=== PATIENT | female | born 1935 | race Caucasian/White ===

== ENCOUNTER 2016-07-27 13:22 | Inpatient (IN) | payer MEDICARE, OTHER ==
--- NOTE | 2016-07-27 13:31 | ER Document Report ---
ED Medical Screen (RME) - General Stated Complaint: WEAK/MEMORY LOSS Mode of Arrival: Wheelchair Information source: Patient, Relative - significant other Notes: Patient presents to the emergency department with her significant other for complaints of weakness, weight loss and not eating for the past month. Reports last weight was 93 lbs, today 86 lbs. He also reports she's not drinking fluids. Denies chest pain or shortness of breath. Has history of COPD reports coughing not new. TRAVEL OUTSIDE OF THE [place] IN LAST 30 DAYS: No - Related Data Allergies/Adverse Reactions: No Known Allergies Allergy (Verified 06/27/16 12:50) Past Medical History - Past Medical History Cardiac Medical History: Reports: Hx Hypertension Denies: Hx Coronary Artery Disease, Hx Heart Attack Pulmonary Medical History: Reports: Hx Asthma, Hx Bronchitis, Hx COPD - On home O2., Hx Pneumonia Renal/ Medical History: Reports: Hx Renal Insufficiency GI Medical History: Reports: Hx Ulcer. Denies: Hx Hepatitis Musculoskeltal Medical History: Reports Hx Arthritis Psychiatric Medical History: Reports: Hx Anxiety Infectious Medical History: Denies: Hx Hepatitis Past Surgical History: Reports: Other - Cataract - Immunizations Hx Diphtheria, Pertussis, Tetanus Vaccination: No
[2016-07-27] MEDS ORDERED: NORMAL SALINE 1000 ML 1,000 ML IV ONE (14:17)
[2016-07-27 16:40] LABS: ABSOLUTE EOSINOPHILS # (AUTO) 0.1 10^3/uL (0.0-0.6); ABSOLUTE LYMPHOCYTES (AUTO) 0.8 10^3/uL (0.5-4.7); ABSOLUTE MONOCYTES (AUTO) 0.8 10^3/uL (0.1-1.4); ABSOLUTE NEUT (AUTO) 2.4 10^3/uL (1.7-8.2); BASOPHILS % (AUTO) 0.5 % (0-2); EOSINOPHILS % (AUTO) 3.3 % (0-6); HEMATOCRIT 31.7 % (36.0-47.0); HEMOGLOBIN 10.2 g/dL (12.0-15.5); HGB HCT DIFFERENCE -1.1; LYMPHOCYTES % (AUTO) 19.8 % (13-45); MEAN CORPUSCULAR HEMOGLOBIN 25.3 pg (27.0-33.4); MEAN CORPUSCULAR HGB CONC 32.1 g/dL (32.0-36.0); MONOCYTES % (AUTO) 19.8 % (3-13); RED BLOOD COUNT 4.02 10^6/uL (3.72-5.28); RED CELL DISTRIBUTION WIDTH 19.6 % (11.5-14.0); SEGMENTED NEUTROPHILS % (AUTO) 56.6 % (42-78); WHITE BLOOD COUNT 4.2 10^3/uL (4.0-10.5)
[2016-07-27 16:43] LABS: MEAN CORPUSCULAR VOLUME 79 fl (80-97)
[2016-07-27 16:49] LABS: ALANINE AMINOTRANSFERASE 17 U/L (9-52); ALBUMIN 2.9 g/dL (3.5-5.0); ALKALINE PHOSPHATASE 77 U/L (38-126); ANION GAP 13 (5-19); ASPARTATE AMINO TRANSFERASE 22 U/L (14-36); BILIRUBIN,TOTAL 0.7 mg/dL (0.2-1.3); BLOOD UREA NITROGEN 38 mg/dL (7-20); CARBON DIOXIDE 25 mmol/L (22-30); CHLORIDE 103 mmol/L (98-107); CREATININE RESULT 2.55 mg/dL (0.52-1.25); GLUCOSE 64 mg/dL (75-110); POTASSIUM 3.7 mmol/L (3.6-5.0); SODIUM 140.6 mmol/L (137-145); TOTAL PROTEIN 5.7 g/dL (6.3-8.2)
[2016-07-27 16:56] LABS: APPEARANCE,URINE CLEAR; BILIRUBIN,URINE NEGATIVE (NEGATIVE); GLUCOSE, URINE NEGATIVE (NEGATIVE); KETONES,URINE TRACE mg/dL (NEGATIVE); LEUKOCYTE ESTERASE,URINE TRACE (NEGATIVE); NITRITE,URINE NEGATIVE (NEGATIVE); PROTEIN,URINE 100 mg/dL (NEGATIVE); URINE SPECIFIC GRAVITY 1.009; UROBILINOGEN,URINE NEGATIVE mg/dL (<2.0)
[2016-07-27 17:06] LABS: CALCIUM 12.7 mg/dL (8.4-10.2)
--- NOTE | 2016-07-27 17:10 | ER Document Report ---
ED General - General Chief Complaint: General Weakness Stated Complaint: WEAK/MEMORY LOSS Mode of Arrival: Wheelchair Information source: Patient Notes: 80-year-old female presents with complaints of generalized weakness dehydration. Patient is noted to have lost 5-6 pounds in the past week. Patient was seen here multiple times in the past month for dehydration was hydrated and sent home.She does not have much of an appetite denies any fevers or chills nausea vomiting or diarrhea TRAVEL OUTSIDE OF THE [place] IN LAST 30 DAYS: No - HPI Onset: Other - 1 month Onset/Duration: Worse Quality of pain: No pain Severity: Moderate Pain Level: Denies Associated symptoms: Weakness Exacerbated by: Denies Relieved by: Denies Similar symptoms previously: Yes Recently seen / treated by doctor: Yes - Related Data Allergies/Adverse Reactions: No Known Allergies Allergy (Verified 07/27/16 13:28) Home Medications: Current Home Medications Alprazolam [Xanax 0.5 mg Tablet] 0.5 mg PO HSP PRN 07/27/16 [History] Cetirizine HCl [Zyrtec 10 mg Tablet] 10 mg PO DAILYP PRN 07/27/16 [History] Cholecalciferol (Vitamin D3) [Vitamin D3 1000 Unit Tablet] 2,000 units PO DAILY 07/27/16 [History] Esomeprazole Magnesium [Nexium 24Hr] 1 cap PO DAILY 07/27/16 [History] Fenofibrate [Lofibra] 160 mg PO QHS 07/27/16 [History] Gabapentin [Neurontin 100 mg Capsule] 100 mg PO Q12 07/27/16 [History] Ipratropium/Albuterol Sulfate [Combivent Respimat 4 gm Mdi] 1 puff IH QID [History] Magnesium 250 mg PO DAILY 07/27/16 [History] Megestrol Acetate [Megace] 400 mg PO BID 07/27/16 [History] Metoprolol Tartrate [Lopressor 50 mg Tablet] 25 mg PO DAILY 07/27/16 [History] Oxycodone HCl/Acetaminophen [Oxycodone-Acetaminophen 5-325] 1 tab PO Q12HP PRN 07/27/16 [History] Past Medical History - General Information source: Patient, Relative - significant other - Social History Smoking Status: Never Smoker Cigarette use (# per day): No Chew tobacco use (# tins/day): No Smoking Education Provided: No Frequency of alcohol use: None Drug Abuse: None Family History: Reviewed & Not Pertinent, Malignancy - Lung cancer-father, leukemia-mother Patient has suicidal ideation: No Patient has homicidal ideation: No - Past Medical History Cardiac Medical History: Reports: Hx Hypertension Denies: Hx Coronary Artery Disease, Hx Heart Attack Pulmonary Medical History: Reports: Hx Asthma, Hx Bronchitis, Hx COPD - On home O2., Hx Pneumonia Renal/ Medical History: Reports: Hx Renal Insufficiency. Denies: Hx Peritoneal Dialysis GI Medical History: Reports: Hx Ulcer. Denies: Hx Hepatitis Musculoskeltal Medical History: Reports Hx Arthritis Psychiatric Medical History: Reports: Hx Anxiety Infectious Medical History: Denies: Hx Hepatitis Past Surgical History: Reports: Other - Cataract - Immunizations Hx Diphtheria, Pertussis, Tetanus Vaccination: No Hx Pneumococcal Vaccination: 11/13/10 Review of Systems - Review of Systems Notes: REVIEW OF SYSTEMS: CONSTITUTIONAL : Denies fever, chills, or sweats. Denies recent illness. EENT: Denies eye, ear, throat, or mouth pain or symptoms. Denies nasal or sinus congestion or discharge. Denies throat, tongue, or mouth swelling or difficulty swallowing. CARDIOVASCULAR: Denies chest pain. Denies palpitations or racing or irregular heart beat. Denies ankle edema. RESPIRATORY: Denies cough, cold, or chest congestion. Denies shortness of breath, difficulty breathing, or wheezing. GASTROINTESTINAL: Denies abdominal pain or distention. Denies nausea, vomiting , or diarrhea. Denies blood in vomitus, stools, or per rectum. Denies black, tarry stools. Denies constipation. GENITOURINARY: Denies difficulty urinating, painful urination, burning, frequency, blood in urine, or discharge. FEMALE GENITOURINARY: Denies vaginal bleeding, heavy or abnormal periods, irregular periods. Denies vaginal discharge or odor. MUSCULOSKELETAL: Denies back or neck pain or stiffness. Denies joint pain or swelling. SKIN: Denies rash, lesions or sores. HEMATOLOGIC : Denies easy bruising or bleeding. LYMPHATIC: Denies swollen, enlarged glands. NEUROLOGICAL: admits to weakness PSYCHIATRIC: Denies anxiety or stress. Denies depression, suicidal ideation, or homicidal ideation. ALL OTHER SYSTEMS REVIEWED AND NEGATIVE. Dictation was performed using Dragon voice recognition software PHYSICAL EXAMINATION: GENERAL: Well-appearing, well-nourished and in no acute distress. HEAD: Atraumatic, normocephalic. EYES: Pupils equal round and reactive to light, extraocular movements intact, conjunctiva are normal. ENT: Nares patent, oropharynx clear without exudates. Moist mucous membranes. NECK: Normal range of motion, supple without lymphadenopathy LUNGS: Breath sounds clear to auscultation bilaterally and equal. No wheezes rales or rhonchi. HEART: Regular rate and rhythm without murmurs ABDOMEN: Soft, nontender, nondistended abdomen. No guarding, no rebound. No masses appreciated. Female : deferred Musculoskeletal: Normal range of motion, no pitting or edema. No cyanosis. NEUROLOGICAL: Cranial nerves grossly intact. Normal speech, normal gait. Normal sensory, motor exams PSYCH: Normal mood, normal affect. SKIN: Warm, Dry, normal turgor, no rashes or lesions noted. Physical Exam - Vital signs Vitals: Temp Pulse Resp BP Pulse Ox 97.9 F 71 12 130/58 H 97 07/27/16 13:28 07/27/16 13:28 07/27/16 13:28 07/27/16 13:28 07/27/16 13:28 Course - Re-evaluation Re-evalutation: 07/27/16 19:21 pts creatinine is elevated, she is noted to be hypocalcemic which she has been in the past. Patient's been ordered fluids, lab work otherwise notes no significant abnormality I will admit her for the weakness and worsening renal function - Vital Signs Vital signs: Temp Pulse Resp BP Pulse Ox 97.9 F 71 23 H 176/87 H 97 07/27/16 13:28 07/27/16 13:28 07/27/16 19:01 07/27/16 19:01 07/27/16 19:01 - Laboratory Result Diagrams: 07/27/16 16:10 07/27/16 16:10 Laboratory results interpreted by me: 07/27/16 07/27/16 07/27/16 16:10 16:10 16:18 Hgb 10.2 L Hct 31.7 L MCV 79 L D MCH 25.3 L RDW 19.6 H Monocytes % 19.8 H BUN 38 H Creatinine 2.55 H Est GFR ( Amer) 22 L Est GFR (Non-Af Amer) 18 L Glucose 64 L Calcium 12.7 H* Total Protein 5.7 L Albumin 2.9 L Urine Protein 100 H Urine Ketones TRACE H Ur Leukocyte Esterase TRACE H Critical Care Note - Critical Care Note Total time excluding time spent on procedures (mins): 35 Comments: 35 minutes of critical care time spent in direct contact evaluating and reevaluating the patient, treating symptoms, reviewing labs and studies and speaking with family and consultants excluding any procedures Discharge - Discharge Clinical Impression: RADHA (acute kidney injury), Dehydration, Hypercalcemia Condition: Stable Disposition: ADMITTED INPATIENT Admitting Provider: Hospitalist Unit Admitted: Telemetry
[2016-07-27] MEDS ORDERED: ACETAMINOPHEN 325 MG TABLET PO PRN (19:02)
[2016-07-27] MEDS ORDERED: ONDANSETRON HCL INJ/PF 4 MG/2 ML SDV IV PRN (19:02)
[2016-07-27] MEDS ORDERED: ALPRAZOLAM 0.5 MG TABLET PO PRN (19:08)
[2016-07-27] MEDS ORDERED: HYDRALAZINE HCL INJ/PF 20 MG/1 ML SDV IV PRN (19:19)
--- NOTE | 2016-07-27 19:38 | PDOC H&P ---
History of Present Illness Admission Date/PCP: 07/27/16 19:03 JOANA VALDEZ Patient complains of: Generalized weakness History of Present Illness: JERICHO EAST is a 80 year old female, with chronic kidney disease stage IV anorexia COPD hypertension breath to the hospital by the family due to increasing weakness worse for the past few days. The patient was admitted for similar problems in May of last year. Patient found to have renal failure and dehydration with hypercalcemia and given Megace but according to the family is not helping. The patient denies any specific complaints at all. Patient just feels weak and tired without any appetite. No nausea or vomiting. No chills or fever. No diarrhea. No abdominal pain. No chest pain or shortness of breath. Patient is becoming lethargic according to family. She was brought to the hospital for evaluation. Creatinine is worse and serum calcium is elevated and therefore was referred for admission Past Medical History Past Medical History: Medications reconciliation pending verification from the patient's pharmacist Cardiac Medical History: Reports: Hypertension Denies: Coronary Artery Disease, Myocardial Infarction Pulmonary Medical History: Reports: Asthma, Bronchitis, Chronic Obstructive Pulmonary Disease (COPD) - On home O2., Pneumonia GI Medical History: Denies: Hepatitis Musculoskeltal Medical History: Reports: Arthritis Hematology: Denies: Anemia, Sickle Cell Disease Past Surgical History Past Surgical History: Reports: Other - Cataract Denies: Amputation Social History Smoking Status: Former Smoker Frequency of Alcohol Use: Occasional Hx Recreational Drug Use: No Drugs: None Hx Prescription Drug Abuse: No Family History Family History: Malignancy - Lung cancer-father, leukemia-mother Parental Family History Reviewed: Yes Children Family History Reviewed: Yes Sibling(s) Family History Reviewed.: Yes Medication/Allergy Home Medications: Alprazolam [Xanax 0.5 mg Tablet] 0.5 mg PO HSP PRN 07/27/16 Cetirizine HCl [Zyrtec 10 mg Tablet] 10 mg PO DAILYP PRN 07/27/16 Cholecalciferol (Vitamin D3) [Vitamin D3 1000 Unit Tablet] 2,000 units PO DAILY 07/27/16 Esomeprazole Magnesium [Nexium 24Hr] 1 cap PO DAILY 07/27/16 Fenofibrate [Lofibra] 160 mg PO QHS 07/27/16 Gabapentin [Neurontin 100 mg Capsule] 100 mg PO Q12 07/27/16 Ipratropium/Albuterol Sulfate [Combivent Respimat 4 gm Mdi] 1 puff IH QID Magnesium 250 mg PO DAILY 07/27/16 Megestrol Acetate [Megace] 400 mg PO BID 07/27/16 Metoprolol Tartrate [Lopressor 50 mg Tablet] 25 mg PO DAILY 07/27/16 Oxycodone HCl/Acetaminophen [Oxycodone-Acetaminophen 5-325] 1 tab PO Q12HP PRN 07/27/16 Allergies/Adverse Reactions: No Known Allergies Allergy (Verified 07/27/16 13:28) Review of Systems Constitutional: PRESENT: weight loss - 7 pounds for the past 3 months. ABSENT: chills, fever(s), headache(s), weight gain Eyes: ABSENT: visual disturbances Ears: ABSENT: hearing changes Nose, Mouth, and Throat: ABSENT: mouth pain, sore throat Cardiovascular: ABSENT: chest pain, dyspnea on exertion, edema, orthropnea, palpitations Respiratory: ABSENT: cough, dyspnea, hemoptysis Gastrointestinal: ABSENT: abdominal pain, constipation, diarrhea, dysphagia, hematemesis, hematochezia, melena, nausea, vomiting Genitourinary: ABSENT: difficulty urinating, dysuria, hematuria, nocturia Musculoskeletal: ABSENT: back pain, joint swelling Integumentary: ABSENT: pruritus, rash, wounds Neurological: PRESENT: confusion - Occasionally. ABSENT: abnormal gait, abnormal speech, dizziness, focal weakness, syncope, tremor(s) Psychiatric: ABSENT: anxiety, depression, hallucinations, homidical ideation, suicidal ideation Endocrine: ABSENT: cold intolerance, heat intolerance, polydipsia, polyuria Hematologic/Lymphatic: ABSENT: easy bleeding, easy bruising Physical Exam Vital Signs: Temp Pulse Resp BP Pulse Ox 97.9 F 71 23 H 176/87 H 97 07/27/16 13:28 07/27/16 13:28 07/27/16 19:01 07/27/16 19:01 07/27/16 19:01 General appearance: PRESENT: no acute distress, cooperative, thin Head exam: PRESENT: atraumatic, normocephalic Eye exam: PRESENT: EOMI, PERRLA - But sluggish Ear exam: PRESENT: normal external ear exam. ABSENT: drainage Mouth exam: PRESENT: dry mucosa, neck supple, tongue midline Neck exam: ABSENT: carotid bruit, JVD, lymphadenopathy, thyromegaly Respiratory exam: PRESENT: clear to auscultation mariusz. ABSENT: rales, rhonchi, wheezes Cardiovascular exam: PRESENT: RRR, +S1, +S2, systolic murmur - Over the aortic area. ABSENT: diastolic murmur, rubs Pulses: PRESENT: normal dorsalis pedis pul Vascular exam: PRESENT: normal capillary refill GI/Abdominal exam: PRESENT: normal bowel sounds, soft, tenderness - Mild discomfort to palpation on the upper quadrants but mainly on the left. ABSENT: distended, guarding, mass, organolmegaly, rebound Rectal exam: PRESENT: deferred Extremities exam: PRESENT: full ROM. ABSENT: calf tenderness, clubbing, pedal edema Neurological exam: PRESENT: alert, awake, oriented to situation Psychiatric exam: PRESENT: flat affect, normal mood. ABSENT: homicidal ideation , suicidal ideation Skin exam: PRESENT: dry, intact, warm. ABSENT: cyanosis, rash Assessment & Plan - Diagnosis (1) RADHA (acute kidney injury) Is this a current diagnosis for this admission?: Yes (2) Dehydration Is this a current diagnosis for this admission?: Yes (3) Hypercalcemia Is this a current diagnosis for this admission?: Yes (4) CKD (chronic kidney disease) stage 4, GFR 15-29 ml/min Is this a current diagnosis for this admission?: Yes (5) Anemia of chronic disease Is this a current diagnosis for this admission?: Yes (6) Anorexia Is this a current diagnosis for this admission?: Yes (7) Anxiety Is this a current diagnosis for this admission?: Yes (8) COPD (chronic obstructive pulmonary disease) Qualifiers: COPD type: unspecified COPD Qualified Code(s): J44.9 - Chronic obstructive pulmonary disease, unspecified Is this a current diagnosis for this admission?: Yes (9) Chronic pain Qualifiers: Chronic pain type: other chronic pain Qualified Code(s): G89.29 - Other chronic pain Is this a current diagnosis for this admission?: Yes (10) Hypertension Qualifiers: Hypertension type: essential hypertension Qualified Code(s): I10 - Essential (primary) hypertension Is this a current diagnosis for this admission?: Yes - Time Time Spent: 30 to 50 Minutes - Inpatient Certification Based on my medical assessment, after consideration of the patient's comorbidities, presenting symptoms, or acuity I expect that the services needed warrant INPATIENT care.: Yes I certify that my determination is in accordance with my understanding of Medicare's requirements for reasonable and necessary INPATIENT services [42 CFR 412.3e].: Yes Medical Necessity: Significant Comorbidiites Make Outpatient Treatment Too Risky , Need Close Monitoring Due to Risk of Patient Decompensation, Need For IV Fluids, Risk of Complication if Not Cared For in Hospital Post Hospital Care: D/C Small Engine [employer] Documentation - Plan Summary Plan Summary: The patient will be admitted to the medical floor. We will hydrate the patient and monitor creatinine and serum calcium. We will obtain an ammonia level, as well as B12 level, TSH and free T4. We will check a KUB for impaction. I will continue the patient's antihypertensive medication. As needed hydralazine will be given for systolic blood pressure greater than 180. Megace is not helping according to the family and the patient. We will therefore discontinue this. We will try Marinol Cipro to help her appetite. DVT prophylaxis. Heparin will be given. We will continue her home oxygen.
[2016-07-27 20:27] LABS: LIPASE 21.1 U/L (23-300)
[2016-07-27 20:58] LABS: THYROID STIMULATING HORMONE 1.27 uIU/mL (0.47-4.68)
[2016-07-27] MEDS ORDERED: (PENDING PHARMACY ID) (Fenofibrate [Lofibra] 160 MG) PO SCH (22:00)
[2016-07-28] MEDS: GABAPENTIN 100 MG CAPSULE PO SCH ×3 (00:04→23:42)
[2016-07-28] MEDS: DRONABINOL 2.5 MG CAPSULE PO SCH ×4 (00:04→23:42)
[2016-07-28] MEDS: HEPARIN SOD (PORCINE) 5,000 UNIT/ML 1 ML SYRINGE SUBCUT SCH ×4 (00:04→23:42)
[2016-07-28] MEDS: IPRATROPIUM/ALBUTEROL 120 PUFF/4 GM MDI IH SCH ×5 (00:05→23:42)
[2016-07-28] MEDS: FENOFIBRATE NANOCRYSTALLIZED 145 MG TABLET PO SCH ×2 (00:05→23:42)
[2016-07-28] MEDS: LANSOPRAZOLE 30 MG TAB.RAP.DR PO SCH (07:00)
[2016-07-28 07:10] LABS: ANION GAP 15 (5-19); BLOOD UREA NITROGEN 29 mg/dL (7-20); CALCIUM 11.5 mg/dL (8.4-10.2); CARBON DIOXIDE 19 mmol/L (22-30); CHLORIDE 109 mmol/L (98-107); CREATININE RESULT 2.05 mg/dL (0.52-1.25); GLUCOSE 52 mg/dL (75-110); POTASSIUM 3.2 mmol/L (3.6-5.0); SODIUM 142.5 mmol/L (137-145)
[2016-07-28] MEDS: DOCUSATE SODIUM 100 MG CAPSULE PO SCH ×2 (10:39→17:26)
[2016-07-28] MEDS: METOPROLOL TARTRATE 50 MG TABLET PO SCH (10:40)
[2016-07-28] MEDS: CHOLECALCIFEROL (D3) 1,000 UNIT TABLET PO SCH (10:41)
[2016-07-28] MEDS: NORMAL SALINE 1000 ML 1,000 ML IV PRN ×2 (12:17→21:56)
[2016-07-28] MEDS ORDERED: BISACODYL 10 MG SUPP.RECT PR ONE (12:30)
[2016-07-28] MEDS ORDERED: POTASSIUM CHLORIDE 20 MEQ/15 ML UDCUP PO ONE (17:30)
[2016-07-28] MEDS ORDERED: CINACALCET HCL 30 MG TABLET PO ONE (17:30)
--- NOTE | 2016-07-28 17:32 | PDOC PROGRESS REPORT ---
Subjective Progress Note for:: 07/28/16 Subjective:: Pt feeling better. No nausea, vomiting, chills nor fever. No SOB, PND, orthopnea. No diarrhea. Voiding freely. No hematuria. Physical Exam Vital Signs: Temp Pulse Resp BP Pulse Ox 98.2 F 76 14 169/67 H 96 07/28/16 16:01 07/28/16 16:01 07/28/16 16:01 07/28/16 16:01 07/28/16 16:01 Intake & Output 07/27/16 07/28/16 07/29/16 06:59 06:59 06:59 Intake Total 600 800 Output Total 350 900 Balance 250 -100 Weight 39.4 kg 47.1 kg General appearance: PRESENT: no acute distress, cooperative, thin Head exam: PRESENT: normocephalic Eye exam: PRESENT: conjunctiva pale, EOMI Mouth exam: PRESENT: moist, neck supple Neck exam: ABSENT: JVD Respiratory exam: PRESENT: clear to auscultation mariusz. ABSENT: crackles, wheezes Cardiovascular exam: PRESENT: RRR. ABSENT: gallop GI/Abdominal exam: PRESENT: hypoactive bowel sounds, soft. ABSENT: distended Extremities exam: ABSENT: pedal edema Neurological exam: PRESENT: alert, awake, oriented to situation Skin exam: PRESENT: dry, warm. ABSENT: cyanosis Results Laboratory Results: 07/28/16 06:25 07/27/16 07/27/16 07/27/16 19:55 19:55 19:55 Sodium Potassium Chloride Carbon Dioxide Anion Gap BUN Creatinine Est GFR ( Amer) Est GFR (Non-Af Amer) Glucose Calcium Ammonia < 8.7 L Lipase 21.1 L Vitamin B12 327.0 TSH 1.27 Free T4 1.65 07/28/16 06:25 Sodium 142.5 Potassium 3.2 L Chloride 109 H Carbon Dioxide 19 L Anion Gap 15 BUN 29 H Creatinine 2.05 H Est GFR ( Amer) 28 L Est GFR (Non-Af Amer) 23 L Glucose 52 L Calcium 11.5 H Ammonia Lipase Vitamin B12 TSH Free T4 Impressions: KUB X-Ray 07/27/16 00:00 IMPRESSION: NO RADIOGRAPHIC EVIDENCE FOR ACUTE ABDOMINAL DISEASE. Mild constipation. Chest X-Ray 07/27/16 19:06 IMPRESSION: No acute findings. Assessment & Plan - Diagnosis (1) RADHA (acute kidney injury) Is this a current diagnosis for this admission?: Yes (2) Dehydration Is this a current diagnosis for this admission?: Yes (3) Hypercalcemia Is this a current diagnosis for this admission?: Yes (4) CKD (chronic kidney disease) stage 4, GFR 15-29 ml/min Is this a current diagnosis for this admission?: Yes (5) Anemia of chronic disease Is this a current diagnosis for this admission?: Yes (6) Anorexia Is this a current diagnosis for this admission?: Yes (7) Anxiety Is this a current diagnosis for this admission?: Yes (8) COPD (chronic obstructive pulmonary disease) Qualifiers: COPD type: unspecified COPD Qualified Code(s): J44.9 - Chronic obstructive pulmonary disease, unspecified Is this a current diagnosis for this admission?: Yes (9) Chronic pain Qualifiers: Chronic pain type: other chronic pain Qualified Code(s): G89.29 - Other chronic pain Is this a current diagnosis for this admission?: Yes (10) Hypertension Qualifiers: Hypertension type: essential hypertension Qualified Code(s): I10 - Essential (primary) hypertension Is this a current diagnosis for this admission?: Yes - Time Time Spent with patient: 25-34 minutes - Plan Summary Plan Summary: Replace potassium. Begin sensipar. Re-check electrolytes and crea in am. 1 dose of dulcolax suppository. Continue hydration.
[2016-07-28] MEDS ORDERED: CEFTRIAXONE 1 GM/D5W RTU 1 GM/50 ML RTUPB IV SCH (18:00)
[2016-07-29] MEDS: HEPARIN SOD (PORCINE) 5,000 UNIT/ML 1 ML SYRINGE SUBCUT SCH ×2 (05:45→14:16)
[2016-07-29] MEDS: DRONABINOL 2.5 MG CAPSULE PO SCH (05:46)
[2016-07-29] MEDS: LANSOPRAZOLE 30 MG TAB.RAP.DR PO SCH (05:46)
[2016-07-29 06:16] LABS: ANION GAP 11 (5-19); BLOOD UREA NITROGEN 24 mg/dL (7-20); CALCIUM 10.8 mg/dL (8.4-10.2); CARBON DIOXIDE 20 mmol/L (22-30); CHLORIDE 111 mmol/L (98-107); CREATININE RESULT 1.96 mg/dL (0.52-1.25); GLUCOSE 83 mg/dL (75-110); POTASSIUM 3.1 mmol/L (3.6-5.0); SODIUM 141.7 mmol/L (137-145)
[2016-07-29] MEDS ORDERED: CINACALCET HCL 30 MG TABLET PO SCH (10:00)
[2016-07-29] MEDS: DOCUSATE SODIUM 100 MG CAPSULE PO SCH (11:03)
[2016-07-29] MEDS: CHOLECALCIFEROL (D3) 1,000 UNIT TABLET PO SCH (11:03)
[2016-07-29] MEDS: GABAPENTIN 100 MG CAPSULE PO SCH (11:03)
[2016-07-29] MEDS: METOPROLOL TARTRATE 50 MG TABLET PO SCH (11:04)
[2016-07-29] MEDS: POTASSIUM CHLORIDE 10 MEQ TABLET.SA PO SCH ×2 (11:05→14:16)
[2016-07-29] MEDS: IPRATROPIUM/ALBUTEROL 120 PUFF/4 GM MDI IH SCH ×2 (11:05→14:13)
[2016-07-29] MEDS: NORMAL SALINE 1000 ML 1,000 ML IV PRN (11:14)
--- NOTE | 2016-07-29 13:08 | PDOC DISCHARGE SUMMARY ---
General - Admit/Disc Date/PCP Admission Date/Primary Care Provider: 07/27/16 19:03 JOANA COURTNEY Discharge Date: 07/29/16 - Discharge Diagnosis (1) RADHA (acute kidney injury) Is this a current diagnosis for this admission?: Yes (2) Dehydration Is this a current diagnosis for this admission?: Yes (3) Hypercalcemia Is this a current diagnosis for this admission?: Yes (4) CKD (chronic kidney disease) stage 4, GFR 15-29 ml/min Is this a current diagnosis for this admission?: Yes (5) Anemia of chronic disease Is this a current diagnosis for this admission?: Yes (6) Anorexia Is this a current diagnosis for this admission?: Yes (7) Anxiety Is this a current diagnosis for this admission?: Yes (8) COPD (chronic obstructive pulmonary disease) Is this a current diagnosis for this admission?: Yes (9) Chronic pain Is this a current diagnosis for this admission?: Yes (10) Hypertension Is this a current diagnosis for this admission?: Yes - Additional Information Resuscitation Status: Full Code Discharge Diet: Other (Comments) - low-sodium low potassium renal diet Discharge Activity: Activity As Tolerated, Balance Activity w/Rest Home Medications: Alprazolam [Xanax 0.5 mg Tablet] 0.5 mg PO HSP PRN 07/27/16 Cholecalciferol (Vitamin D3) [Vitamin D3 1000 Unit Tablet] 2,000 units PO DAILY 07/27/16 Esomeprazole Magnesium [Nexium 24Hr] 1 cap PO DAILY 07/27/16 Fenofibrate [Lofibra] 160 mg PO QHS 07/27/16 Gabapentin [Neurontin 100 mg Capsule] 100 mg PO Q12 07/27/16 Ipratropium/Albuterol Sulfate [Combivent Respimat 4 gm Mdi] 1 puff IH QID Metoprolol Tartrate [Lopressor 50 mg Tablet] 25 mg PO DAILY 07/27/16 Oxycodone HCl/Acetaminophen [Oxycodone-Acetaminophen 5-325] 1 tab PO Q12HP PRN 07/27/16 Cinacalcet HCl [Sensipar 30 mg Tablet] 30 mg PO DAILY #30 tablet 07/29/16 Docusate Sodium [Colace 100 mg Capsule] 100 mg PO BID capsule 07/29/16 Dronabinol [Marinol 2.5 mg Capsule] 2.5 mg PO Q8 #90 capsule 07/29/16 Additional Information: Repeat calcium and potassium level as outpatient with primary care physician in one to 2 weeks. History of Present Illness Patient complains of: Generalized weakness History of Present Illness: JERICHO EAST is a 80 year old female, with chronic kidney disease stage IV anorexia COPD hypertension breath to the hospital by the family due to increasing weakness worse for the past few days. The patient was admitted for similar problems in May of last year. Patient found to have renal failure and dehydration with hypercalcemia and given Megace but according to the family is not helping. The patient denies any specific complaints at all. Patient just feels weak and tired without any appetite. No nausea or vomiting. No chills or fever. No diarrhea. No abdominal pain. No chest pain or shortness of breath. Patient is becoming lethargic according to family. She was brought to the hospital for evaluation. Creatinine is worse and serum calcium is elevated and therefore was referred for admission Hospital Course Hospital Course: The patient was admitted to the medical floor. The patient was gently hydrated with intravenous fluids. Creatinine was monitored and was trending down. Electrolytes were monitored as well and noted potassium was low and this was replaced. Routine urinalysis did show findings suggestive of UTI. Patient was given ceftriaxone. Final culture however revealed mixed ilda. The patient was tried on Marinol. Appetite did show some mild improvement. Patient was given Dulcolax for her constipation. She was given Sensipar for her hypercalcemia as well. She was advised to follow-up the level with her primary care physician. She does not want to stay in the hospital any longer and therefore she was discharged home improved however. Physical Exam Vital Signs: Temp Pulse Resp BP Pulse Ox 99.3 F 67 18 147/85 H 99 07/29/16 07:00 07/29/16 07:00 07/29/16 07:00 07/29/16 07:00 07/29/16 07:00 Intake & Output 07/28/16 07/29/16 07/30/16 06:59 06:59 06:59 Intake Total 600 3200 Output Total 350 1725 Balance 250 1475 Weight 39.4 kg 47.2 kg General appearance: PRESENT: no acute distress, cooperative, thin Head exam: PRESENT: normocephalic Eye exam: PRESENT: EOMI, PERRLA Mouth exam: PRESENT: moist, neck supple Neck exam: ABSENT: JVD Respiratory exam: PRESENT: clear to auscultation mariusz. ABSENT: rhonchi, wheezes Cardiovascular exam: PRESENT: RRR GI/Abdominal exam: PRESENT: hypoactive bowel sounds, soft. ABSENT: distended, tenderness Extremities exam: ABSENT: pedal edema Neurological exam: PRESENT: alert, awake, oriented to person, oriented to place , oriented to time, oriented to situation Psychiatric exam: PRESENT: normal mood Skin exam: PRESENT: dry, warm. ABSENT: cyanosis Results Laboratory Results: 07/29/16 05:26 07/29/16 05:26 Sodium 141.7 Potassium 3.1 L Chloride 111 H Carbon Dioxide 20 L Anion Gap 11 BUN 24 H Creatinine 1.96 H Est GFR ( Amer) 30 L Est GFR (Non-Af Amer) 25 L Glucose 83 Calcium 10.8 H Impressions: KUB X-Ray 07/27/16 00:00 IMPRESSION: NO RADIOGRAPHIC EVIDENCE FOR ACUTE ABDOMINAL DISEASE. Mild constipation. Chest X-Ray 07/27/16 19:06 IMPRESSION: No acute findings. Qualifiers PATEINT BEING DISCHARGED WITH ANY OF THE FOLLOWING DIAGNOSIS?: No Plan Discharge Plan: Follow-up with primary care physician in one week. Nephrology as outpatient in 2 weeks.
[2016-07-29] MEDS ORDERED: CEFTRIAXONE 1 GM/D5W RTU 1 GM/50 ML RTUPB IV ONE (14:00)
[2016-07-29 15:44] VITALS: BP 147/85
== END 2016-07-29 16:05 | disposition home or self-care (01) | DRG 683 ==
LOC: ER 13:22 → UNDOADMIN 17:46 → EH 17:46 → 4S 07-28 01:03
DX: N17.9 Acute kidney failure, unspecified (principal); Z68.1 Body mass index [BMI] 19.9 or less, adult; E83.52 Hypercalcemia; E86.0 Dehydration; D63.1 Anemia in chronic kidney disease; N18.4 Chronic kidney disease, stage 4 (severe); R63.0 Anorexia; F41.9 Anxiety disorder, unspecified; G89.29 Other chronic pain; J44.9 Chronic obstructive pulmonary disease, unspecified; I12.9 Hypertensive chronic kidney disease with stage 1 through stage 4 chronic kidney disease, or unspecified chronic kidney disease; J45.909 Unspecified asthma, uncomplicated; M19.90 Unspecified osteoarthritis, unspecified site; Z79.899 Other long term (current) drug therapy; Z99.81 Dependence on supplemental oxygen; Z98.49 Cataract extraction status, unspecified eye; Z87.891 Personal history of nicotine dependence; Z80.6 Family history of leukemia; Z80.1 Family history of malignant neoplasm of trachea, bronchus and lung
CPT/HCPCS: 36415; 71010; 74000; 80048; 80053; 81001; 82140; 82607; 83690; 84439; 84443; 85025; 87086; 96360; 96372; 99291; J0696; J1644; J3490; J7030; Q0167